=== PATIENT | female | born 1955 | race Caucasian/White ===

== ENCOUNTER 2019-06-02 13:32 | Outpatient (CLI) | payer MEDICARE ==
[~2019-06-02 13:32] MED LIST: BACL10TA PO; LEVO75TA PO; LISI40TA4 PO; METH10OR; NOVOLOG PUMP; PER10325T PO; PREG150C PO; PREVCR VG
[2019-06-02] MEDS ORDERED: ROSU20TA31 PO (15:10)
[2019-06-02] MEDS ORDERED: BUSP10TA3 PO (15:10)
[2019-06-02] MEDS ORDERED: LEVO88TA7 PO (15:10)
[2019-06-02] MEDS ORDERED: CARV-50 PO (15:10)
[2019-06-02] MEDS ORDERED: DONE10TA7 PO (15:10)
[2019-06-02] MEDS ORDERED: MELO-102 PO (15:10)
[2019-06-02] MEDS ORDERED: VILA10TA PO (15:10)
[2019-06-02] MEDS ORDERED: ERGO500056 PO (15:10)
[2019-06-02 15:35] LABS: BASOPHILS # (AUTO) 0.1 X10'3 (0-0.2); BASOPHILS % (AUTO) 0.9 % (0-1); EOSINOPHILS # (AUTO) 0.1 X10'3 (0-0.9); EOSINOPHILS % (AUTO) 1.9 % (0-6); LYMPHOCYTES % (AUTO) 36.5 % (21-51); MEAN CORPUSCULAR HEMOGLOBIN 31.8 PG (27.0-31.0); MEAN CORPUSCULAR HGB CONC 33.3 g/dL (33.0-36.5); MEAN CORPUSCULAR VOLUME 95.5 FL (78-98); MEAN PLATELET VOLUME 10.8 FL (7.4-10.4); MONOCYTES # (AUTO) 0.4 X10'3 (0-0.9); MONOCYTES % (AUTO) 7.6 % (2-12); NEUTROPHILS # (AUTO) 2.9 X10'3 (1.8-7.7); NEUTROPHILS % (AUTO) 53.1 % (42-75); PRE OP HEMATOCRIT 39.3 % (35.0-45.0); PRE OP HEMOGLOBIN 13.1 g/dL (12.0-16.0); PRE OP PLATELET COUNT 105 X10'3 (140-440); RED BLOOD COUNT 4.11 X10'6 (4.20-5.60); RED CELL DISTRIBUTION WIDTH 13.9 % (11.5-14.5)
[2019-06-02 15:44] LABS: PRE OP PROTIME 10.6 SECONDS (9.0-12.0)
[2019-06-02 15:57] LABS: HEMOGLOBIN A1C 8.6 % (4.5-6.2)
[2019-06-02 16:00] LABS: ALBUMIN 3.9 G/DL (3.4-5.0); ALKALINE PHOSPHATASE 77 IU/L (46-116); BLOOD UREA NITROGEN 13 MG/DL (7-18); BUN/CREATININE RATIO 10.2 (6.6-38.0); CHLORIDE 102 MMOL/L (99-107); CREATININE 1.27 MG/DL (0.40-0.90); PRE OP ALT 35 U/L (30-65); PRE OP ANION GAP 4 (8-16); PRE OP AST 41 U/L (10-37); PRE OP BILIRUB, TOTAL 0.4 MG/DL (0.0-1.0); PRE OP GLUCOSE 111 MG/DL (70-104); PRE OP POTASSIUM 4.4 MMOL/L (3.4-5.1); PRE OP SODIUM 140 MMOL/L (135-145); TOTAL CARBON DIOXIDE 34.3 MMOL/L (24-32); TOTAL PROTEIN 7.8 G/DL (6.4-8.2); eGFR 43 ML/MIN
== END 2019-06-02 23:59 | disposition home or self-care (01) ==
LOC: PRE-OP 13:32 → EDSTATUS 06-07 15:00
PROVIDERS: ATTEND Orthopaedic Surgery
DX: Z01.818 Encounter for other preprocedural examination (principal); M25.551 Pain in right hip; M25.561 Pain in right knee; Z96.651 Presence of right artificial knee joint
CPT/HCPCS: 36415; 80053; 83036; 84443; 85025; 85610; 85730; 87081

== ENCOUNTER 2022-01-03 07:23 | Day surgery (SDC) | payer MEDICARE ==
[2021-12-26 13:30] LABS: BASOPHILS % (AUTO) 0.9 % (0-1); EOSINOPHILS # (AUTO) 0.1 X10'3 (0-0.9); EOSINOPHILS % (AUTO) 3.3 % (0-6); LYMPHOCYTES # (AUTO) 1.5 X10'3 (1.1-4.8); LYMPHOCYTES % (AUTO) 39.7 % (21-51); MEAN CORPUSCULAR HEMOGLOBIN 28.9 PG (27.0-31.0); MEAN CORPUSCULAR HGB CONC 32.7 g/dL (33.0-36.5); MEAN CORPUSCULAR VOLUME 88.3 FL (78-98); MEAN PLATELET VOLUME 9.8 FL (7.4-10.4); MONOCYTES # (AUTO) 0.5 X10'3 (0-0.9); MONOCYTES % (AUTO) 12.9 % (2-12); NEUTROPHILS # (AUTO) 1.6 X10'3 (1.8-7.7); NEUTROPHILS % (AUTO) 43.2 % (42-75); PRE OP HEMATOCRIT 36.3 % (35.0-45.0); PRE OP HEMOGLOBIN 11.9 g/dL (12.0-16.0); PRE OP PLATELET COUNT 162 X10'3 (140-440); RED BLOOD COUNT 4.11 X10'6 (4.20-5.60); RED CELL DISTRIBUTION WIDTH 13.7 % (11.5-14.5)
[2021-12-26 13:43] LABS: ALBUMIN 3.4 G/DL (3.4-5.0); ALBUMIN/GLOBULIN RATIO 0.8 (1.1-1.5); ALKALINE PHOSPHATASE 119 IU/L (46-116); BLOOD UREA NITROGEN 18 MG/DL (7-18); BUN/CREATININE RATIO 18.4 (6.6-38.0); CALCIUM 8.7 MG/DL (8.5-10.1); CHLORIDE 99 MMOL/L (99-107); CREATININE 0.98 MG/DL (0.40-0.90); PRE OP ALT 24 U/L (30-65); PRE OP ANION GAP 5 (8-16); PRE OP AST 18 U/L (10-37); PRE OP BILIRUB, TOTAL 0.3 MG/DL (0.0-1.0); PRE OP POTASSIUM 4.2 MMOL/L (3.4-5.1); PRE OP SODIUM 135 MMOL/L (135-145); TOTAL PROTEIN 7.7 G/DL (6.4-8.2); eGFR 57 ML/MIN
[2021-12-26 13:47] LABS: PRE OP GLUCOSE 345 MG/DL (70-104)
[2022-01-03] VITALS (11 sets, daily range): BP systolic 98–168; BP diastolic 60–97
[~2022-01-03] VITALS: Ht 160 cm; Wt 64.9 kg
[~2022-01-03 07:23] MED LIST changes: -BACL10TA PO; +ERGO500056 PO; -LEVO75TA PO; -LISI40TA4 PO; -METH10OR; -PREVCR VG; +ceFAZolin inj. 2,000 MG in dextrose 5%-water 100 ML IV ONE; +famotidine 20mg tablet PO ONE; +ringers solution, lacted 1,000 ML IV SCH
[2022-01-03] MEDS ORDERED: LIDOcaine 0.5% (5mg/ml) 50ml vial ONE (07:25)
--- NOTE | 2022-01-03 07:50 | NUR ---
rfeceived pt to pas unit, prepped and prepared for surgery. pt has multiple lesions on both arms which she said was an allergic reaction from doing yard work. pt states they have improved, will verify with surgeon that he wants to continue. pt has a pair of earrings and a nose ring that she cannot remove, operating room nurse notified. pt has a continuous abdominal pump of lispro insulin that infuses 13 units a day. pt checked her sugar with her rodney 2 monitor this morning she said it was 200, she took an additional 2 units to cover this blood sugar. blood sugar in [facility] showed 105 on her monitor and 82 on the accucheck machine.
[2022-01-03] MEDS ORDERED: morphine 2 MG/ML inj. syringe IV PRN (08:50)
[2022-01-03] MEDS ORDERED: proCHLORperazine 10 MG/2 ml inj IV PRN (08:50)
[2022-01-03] MEDS ORDERED: ringers solution, lacted 1,000 ML IV SCH (08:50)
[2022-01-03] MEDS ORDERED: meperidine/PF 25mg/ml syringe IV PRN ×3 (08:50)
[2022-01-03] MEDS ORDERED: ondansetron/PF 4mg/2ml inj IV PRN (08:50)
[2022-01-03] MEDS ORDERED: morphine 4 MG/ML inj SYRINge IV PRN (08:50)
[2022-01-03] MEDS ORDERED: BUPIVAcaine/PF 2.5 mg/ml (0.25%) 30ml vial ONE (09:38)
[2022-01-03] MEDS ORDERED: LIDOcaine 1% 30ml preserv. free vial ONE (09:42)
[2022-01-03] MEDS ORDERED: midazolam 1 mg/ML 2ml injection ONE (09:47)
[2022-01-03] MEDS ORDERED: fentaNYL/PF 50MCG/1 ML 2ML syringe ONE (09:47)
--- NOTE | 2022-01-03 10:26 | NUR ---
Received from OR via [facility], accompanied by Anesthesiologist DR WEATHERS and report given by Anesthesiolgist. PT PRESENTS WITH PIV 20G RIGHT HAND, LEFT WRIST/ELBOW DRESSING MADELAINE, JACKSONS. Addendum: 01/03/22 at 1040 by Lillie Fall RN, RN Amended: Links added.
--- NOTE | 2022-01-03 10:47 | NUR ---
PT HAS BLOOD GLUCOSE MONITOR, RECORDED 90 AT 10:47 Addendum: 01/03/22 at 1048 by Lillie Fall RN, RN Amended: Links added.
[2022-01-03] MEDS ORDERED: oxyCODONE/APAP 5-325mg tablet PO ONE (11:15)
--- NOTE | 2022-01-03 12:06 | NUR ---
PT HAS MET ALL DC CRITERIA, IV DC'D WITH [facility] INTACT. DC INSTRUCTIONS REVIEWED WITH PT, PT VERBALIZED UNDERSTANDING WITH NO FURTHER QUESTIONS AT THIS TIME. PT WHEELED OUT OF HOSPITAL IN WHEELCHAIR WHERE PT MED TEJA GAMMA RAY OPERATOR TO TAKE HER HOME. Addendum: 01/03/22 at 1416 by Lillie Fall RN, RN Amended: Links added.
--- NOTE | 2022-01-03 14:21 | NUR ---
PT CALLED AT . I CALLED TO CHECK ON PT A SHE TOOK A UBER HOME. PT REPORTS SHE IS DOING FINE, SHE GOT HOME AND NOTES NO PROBLEMS AT THIS TIME. Addendum: 01/03/22 at 1423 by Lillie Fall RN, RN Amended: Links added.
== END 2022-01-03 12:06 | disposition home or self-care (01) ==
LOC: PAS 07:23
PROVIDERS: ATTEND Orthopaedic Surgery Hand Surgery
DX: G56.22 Lesion of ulnar nerve, left upper limb (principal); E11.40 Type 2 diabetes mellitus with diabetic neuropathy, unspecified; F41.9 Anxiety disorder, unspecified; F32.A Depression, unspecified; I10 Essential (primary) hypertension; M17.12 Unilateral primary osteoarthritis, left knee; Z79.4 Long term (current) use of insulin; Z86.73 Personal history of transient ischemic attack (TIA), and cerebral infarction without residual deficits; Z87.891 Personal history of nicotine dependence; Z90.49 Acquired absence of other specified parts of digestive tract; Z96.651 Presence of right artificial knee joint; Z98.890 Other specified postprocedural states; Z90.710 Acquired absence of both cervix and uterus; Z88.8 Allergy status to other drugs, medicaments and biological substances; Z72.89 Other problems related to lifestyle; Z20.822 Contact with and (suspected) exposure to COVID-19
CPT/HCPCS: 36415; 64718; 64719; 80053; 82948; 85025; 93005; A6222; J0690; J2250; J3010; J3490; J7030; J7060; J7120; U0003; U0005; Z7506; Z7512; A4215; A4618; A6446; A6449; A7000

== ENCOUNTER 2022-01-10 19:27 | Emergency (ER) | payer MEDICARE ==
[~2022-01-10] VITALS: Ht 160 cm; Wt 61.5 kg
[~2022-01-10 19:27] MED LIST changes: -ceFAZolin inj. 2,000 MG in dextrose 5%-water 100 ML IV ONE; -famotidine 20mg tablet PO ONE; -ringers solution, lacted 1,000 ML IV SCH
[2022-01-10 19:54] VITALS: BP 127/88
--- NOTE | 2022-01-10 20:36 | NUR ---
Charlene HERNANDEZ at bedside.
== END 2022-01-10 22:01 | disposition home or self-care (01) ==
LOC: ER 19:30
DX: B82.0 Intestinal helminthiasis, unspecified (principal)
CPT/HCPCS: 99281; A6446; A6449